=== PATIENT | male | born 2000 | race Caucasian/White ===

== ENCOUNTER 2021-06-11 18:49 | Emergency (ER) | payer SELFPAY ==
[2021-06-11 18:54] VITALS: BP 124/73; PULSE 109; RESP 18; TEMP 36.7; O2SAT 96; BMI 34.7
--- NOTE | 2021-06-11 19:05 | ED_ITS ---
HPI - Extremity Problem General: Chief complaint: Extremity Injury, Lower Stated complaint: blisters on feet Time Seen by Provider: 06/11/21 18:54 History of Present Illness: Patient appears here after a long walk and bike ride from [facility] and complains about blisters to his feet. Patient is wearing cowboy boots. Patient said blisters been there previous to his time coming down here but they have been made worse by his recent travels. He says they are painful. Associated symptoms: Deny fever(s) Review of Systems Const: Denies: fever(s) or chills Resp: Denies: dyspnea Skin/Breast: Reports: other (Complains of blisters to both feet.) Physical Exam Const: COMMON NORMALS: no acute distress Resp: COMMON NORMALS: normal respiratory effort Cardio: RATE: tachycardic Skin: OTHER: Patient has large blisters to the forefoot lateral aspect and to the little toes on both feet. None of them appear infected. Did have a couple underneath each big toe that have broke open. There is no erythema to the areas no drainage there is tenderness with palpation though. Course Vital Signs: Vital signs: Vital Signs Temperature 98.1 F 06/11/21 18:54 Pulse Rate 109 H 06/11/21 18:54 Respiratory Rate 18 06/11/21 18:54 Blood Pressure 124/73 06/11/21 18:54 Pulse Oximetry 96 06/11/21 18:54 MDM - Extremity (Nontraumatic) Medical Decision Making Blisters on the feet most likely from road walking. No signs of infection. Discharge Plan Discharge Patient Disposition: Home Clinical Impression: Blister of foot Condition: Stable Discharge Orders: Discharge ED (Routine); Ordered 06/11/21 Ordered By: Cooper Oviedo Discharge Diet: Usual diet Discharge Activity: Increase activity as tolerated Patient Instructions: Blister (ED) Activity Restrictions/Additional Instructions: Maria feels much possible. Make sure the socks stay dry. Watch for signs and symptoms of infection such as redness, drainage of pus or severe pain coming from blister areas. You can buy moleskin to place on the feet to keep feet from rubbing in the shoes. Coding Level of Care Code ED Assistant Farm Operations Manager for Chg Fwd Exam Expanded Problem Focused
== END 2021-06-11 19:14 | disposition home or self-care (01) ==
PROVIDERS: Emergency Provider Nurse Practitioner Family
DX: S90.822A Blister (nonthermal), left foot, initial encounter (principal); S90.821A Blister (nonthermal), right foot, initial encounter; Y93.55 Activity, bike riding
CPT/HCPCS: 99281

== ENCOUNTER 2021-09-12 02:03 | Emergency (ER) | payer SELFPAY ==
[2021-09-12] VITALS (11 sets, daily range): BP systolic 100–127; BP diastolic 61–81; PULSE 61–100; RESP 16–18; O2SAT 93–100
--- NOTE | 2021-09-12 02:10 | ECG_ITS ---
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 Measurements Intervals [place] Rate: 86 P: 63 GA: 152 QRS: 74 QRSD: 106 T: 21 QT: 398 QTc: 478 Interpretive Statements SINUS RHYTHM Right ventricular conduction delay NONSPECIFIC T-WAVE ABNORMALITY No previous ECG available for comparison Electronically Signed On 09-12-2021 12:26:31 CDT by Rolando Dc M.D. [id number]
[2021-09-12] MEDS: LORazepam 2 mg/mL INJ 1 mL IM (02:32)
[2021-09-12] MEDS: ziprasidone 20 mg/mL SDV IM (02:33)
[2021-09-12 02:50] LABS: Add Urine Microscopic? NO; Charge for UA Resulting for Rev
[2021-09-12 02:55] LABS: Bilirubin Urine Neg (Negative); Blood Urine Neg (Negative); Glucose Urine UA Norm (Normal); Ketones Urine Negative (Negative); Leukocyte Esterase Urine Negative (Negative); Nitrate Urine Negative (Negative); Protein Urine Neg (Negative); Urine Appearance Clear (CLEAR); Urine Color Colorless (Yellow); Urobilinogen Urine Norm (Negative); pH Urine 6 (5-7)
[2021-09-12 03:02] LABS: Amphetamines Screen Urine Negative (Negative); Barbiturates Screen Urine Negative (Negative); Benzodiazepines Screen Urine Negative (Negative); Cocaine Screen Urine Negative (Negative); Opiate Screen Urine Negative (Negative); PCP Screen Urine Negative (Negative); THC Screen Urine Positive (Negative)
[2021-09-12 03:41] LABS: Basophils # 0.1 10^3/uL (0.0-0.1); Basophils % 0.5 %; Eosinophils # 0.2 10^3/uL (0.0-0.8); Eosinophils % 1.8 %; Hematocrit 43.7 % (42.0-52.0); Lymphocytes # 3.6 10^3/uL (0.8-4.8); Lymphocytes % 35.7 %; Mean Corpuscular HGB Conc 34.3 g/dL (30.0-36.0); Mean Corpuscular Hemoglobin 30.2 pg (28.0-34.0); Mean Corpuscular Volume 88.1 fl (80-94); Mean Platelet Volume 12.5 fL (7.4-10.4); Monocytes # 0.7 10^3/uL (0.2-0.9); Monocytes % 6.6 %; Neutrophils # 5.52 10^3/uL (1.8-7.7); Nucleated Red Blood Cells % 0 %; Platelet Count 162 10^3/cmm (130-400); Red Blood Count 4.96 10^6/uL (4.1-5.3); Red Cell Distribution Width 14.4 % (12.1-15.1)
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
[2021-09-12 04:57] LABS: Alanine Aminotransferase 13 U/L (0-41); Albumin Level 4.7 g/dL (3.5-5.2); Alcohol Level 189 mg/dL (0-10); Alkaline Phosphatase 71 IU/L (40-130); Blood Urea Nitrogen 9 mg/dL (6-20); Calcium 9.4 mg/dL (8.5-10.5); Carbon Dioxide 25 mmol/L (22-29); Chloride 108 mmol/L (98-107); Globulin 2.6 g/dL (1.3-4.6); Glucose 113 mg/dL (65-115); Osmolality Calculated 299 mOsm/kg (285-295); Sodium 145 mmol/L (136-145); Total Bilirubin 0.2 mg/dL (0.15-1.2); Total Protein 7.3 g/dL (6.6-8.7)
[2021-09-12 05:00] LABS: Acetaminophen < 5.0 ug/mL (10-30); Salicylate < 0.3 mg/dL (3-10)
[2021-09-12 05:01] LABS: Anion Gap 16.2 (5-19); Aspartate Amino Transferase 23 U/L (0-40); Potassium 4.2 mmol/L (3.5-5.1)
--- NOTE | 2021-09-12 07:05 | PC.NURSE ---
Report received from TREVA Bates at shift change. Pt resting in bed, eyes closed and snoring. Resp even and unlabored. Jana reported that she tried ambulating pt and he was unable to ambulate without assistance and staggering. Care assumed.
== END 2021-09-12 12:48 | disposition home or self-care (01) ==
PROVIDERS: Emergency Provider Emergency Medicine
DX: F10.129 Alcohol abuse with intoxication, unspecified (principal); Y90.6 Blood alcohol level of 120-199 mg/100 ml
CPT/HCPCS: 80053; 80306; 80307; 81003; 85025; 93005; 96372; 99284; J2060; J3486

== ENCOUNTER 2022-02-26 18:49 | Inpatient (IN) | payer MEDICAID, SELFPAY ==
[2022-02-26 19:02] VITALS: BP 124/82; PULSE 82; RESP 17; TEMP 36.7; O2SAT 98
--- NOTE | 2022-02-26 19:33 | ED.C_ITS ---
HPI - Psych General: Chief Complaint: Psychiatric Symptoms Stated Complaint: Suicidal Time Seen by Provider: 02/26/22 19:14 Source: patient Mode of arrival: ambulatory Limitations: no limitations History of Present Illness: 21-year-old male states he been having increasing depression over the last week with suicidal thoughts. He states that he wants to get help and he is concerned he may kill himself. He denies any previous attempts states he was admitted to the psych hale 3 years ago he does not take any meds. Associated symptoms: Reports depression and suicidal ideation Review of Systems Const: Denies: fever(s), chills, body aches or change in appetite Eyes: Denies: blurry vision or eye discomfort ENMT: Denies: throat pain or dental pain Card: Denies: chest pain Resp: Denies: dyspnea GI: Denies: abdominal pain, nausea, vomiting or diarrhea : Denies: dysuria Musc: Denies: neck pain or back pain Skin/Breast: Denies: rash Neuro: Denies: headache(s) Psych: Reports: depression and suicidal ideation Reji/Lymph: Denies: easy bruising All/Imm: Denies: urticaria PFS ED PFSH: Medical History (Updated 02/26/22 @ 19:36 by Wing Smith MD) No pertinent past medical history Social History (Updated 02/26/22 @ 19:34 by Wing Smith MD) Substance/Drug Use: current Substance/Drug use type: Marijuana Physical Exam Const: COMMON NORMALS: no acute distress, patient oriented x3 and healthy appearing HENMT: COMMON NORMALS: normocephalic and atraumatic HEAD & SCALP: normocephalic and atraumatic Eye: COMMON NORMALS: Equal, round and reactive pupils present and EOMs intact bilaterally PUPIL: Yes Equal, round and reactive pupils present Neck/C-Spine: COMMON NORMALS: full ROM and supple Chest: COMMONS NORMALS: normal inspection of the chest and normal palpation of entire chest wall Resp: COMMON NORMALS: normal respiratory effort, No retractions, No use of accessory muscles and clear to auscultation bilaterally AUSCULTATION: clear to auscultation bilaterally Cardio: COMMON NORMALS: regular rate, regular rhythm and No murmurs present (Cardio) RATE: regular rate RHYTHM: regular rhythm GI: COMMON NORMALS: Normal to inspection, nondistended, normoactive bowel sounds present, Soft to palpation, non-tender and no masses PALPATION: Yes Soft to palpation Extremity: COMMON NORMALS: normal to inspection and full ROM Neuro: COMMON NORMALS: patient oriented x3, moves all extremities and no focal motor deficits Psych: COMMON NORMALS: mental status grossly normal and Normal thought process present THOUGHT PROCESS: Normal thought process present THOUGHT CONTENT: Yes Suicidality present Skin: COMMON NORMALS: no rashes or lesions noted and no wounds GENERAL SKIN EXAM: no rashes or lesions noted Course Vital Signs: Vital signs: Vital Signs Temperature 98.1 F 02/26/22 19:02 Pulse Rate 82 02/26/22 19:02 Respiratory Rate 17 02/26/22 19:02 Blood Pressure 124/82 02/26/22 19:02 Pulse Oximetry 98 02/26/22 19:02 Oxygen Delivery Me thod 02/26/22 19:02 [facility] - Psych Medical Decision Making Patient presents for suicidal ideations patient placed on 96-hour hold medically cleared and will admit to the psych unit. Lab Data 02/26/22 19:25 02/26/22 19:25 Discharge Plan Discharge Patient Disposition: Admitted As Inpatient Clinical Impression: Suicidal ideation Coding Level of Care Code ED Quality Coordinator for Dalila Issa
[2022-02-26 19:34] LABS: Basophils # 0.1 10^3/uL (0.0-0.1); Basophils % 0.7 %; Eosinophils # 0.1 10^3/uL (0.0-0.8); Eosinophils % 1.6 %; Hematocrit 46.8 % (42.0-52.0); Hemoglobin 15.5 g/dL (11.7-16.6); Lymphocytes # 2.8 10^3/uL (0.8-4.8); Lymphocytes % 30.7 %; Mean Corpuscular HGB Conc 33.1 g/dL (30.0-36.0); Mean Corpuscular Volume 93.6 fl (80-94); Mean Platelet Volume 9.4 fL (7.4-10.4); Monocytes # 0.5 10^3/uL (0.2-0.9); Neutrophils # 5.43 10^3/uL (1.8-7.7); Neutrophils % 60.7 %; Nucleated Red Blood Cells % 0 %; Platelet Count 298 10^3/cmm (130-400); Red Cell Distribution Width 13.5 % (12.1-15.1)
[2022-02-26 19:58] LABS: Alanine Aminotransferase 25 U/L (0-41); Albumin Level 4.8 g/dL (3.5-5.2); Alkaline Phosphatase 64 U/L (40-130); Anion Gap 14.1 (5-19); Aspartate Amino Transferase 22 U/L (0-40); Blood Urea Nitrogen 16 mg/dL (6-20); Calcium 10.5 mg/dL (8.5-10.5); Carbon Dioxide 30 mmol/L (22-29); Chloride 99 mmol/L (98-107); Globulin 3.4 g/dL (1.3-4.6); Glomerular Filtration Rate 119.8 mL/min (90-130); Glucose 79 mg/dL (65-115); Osmolality Calculated 288 mOsm/kg (285-295); Potassium 4.1 mmol/L (3.5-5.1); Sodium 139 mmol/L (136-145); Total Bilirubin 0.2 mg/dL (0.15-1.2); Total Protein 8.2 g/dL (6.6-8.7)
[2022-02-26 20:05] LABS: Salicylate < 0.3 mg/dL (3-10)
[2022-02-26 20:06] LABS: Acetaminophen < 5.0 ug/mL (10-30); Alcohol Level < 10 mg/dL (0-10)
[2022-02-26 20:11] LABS: Amphetamines Screen Urine Negative (Negative); Barbiturates Screen Urine Negative (Negative); Benzodiazepines Screen Urine Negative (Negative); Cocaine Screen Urine Negative (Negative); Opiate Screen Urine Negative (Negative); PCP Screen Urine Negative (Negative); THC Screen Urine Positive (Negative)
[2022-02-26 21:05] VITALS: BP 135/82; PULSE 80; RESP 18; TEMP 36.7; O2SAT 98
[2022-02-26 21:38] VITALS: BP 135/82; PULSE 80; RESP 18; TEMP 36.7; O2SAT 98
[2022-02-26] MEDS: nicotine 2 mg Gum BUCCAL (22:13)
[2022-02-27] MEDS: trazodone 50 mg Tablet PO (00:05)
[2022-02-27] MEDS: hyDROXYzine 25 mg Capsule 50 MG PO (00:05)
[2022-02-27 06:00] VITALS: RESP 18
[2022-02-27] MEDS: nicotine 2 mg Gum BUCCAL ×3 (08:15→23:21)
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
[2022-02-27 14:00] VITALS: BP 121/71; PULSE 65; RESP 17; TEMP 36.6; O2SAT 97
[2022-02-27] MEDS: nicotine 21 mg Patch 1 PATCH TRANSDERMA (17:32)
[2022-02-27] MEDS: docusate sodium 100 mg Capsule PO (20:39)
[2022-02-27 20:47] VITALS: BP 131/82; PULSE 84; RESP 18; TEMP 36.7; O2SAT 98
[2022-02-28 05:21] VITALS: RESP 18
[2022-02-28] MEDS: nicotine 2 mg Gum BUCCAL ×3 (09:42→21:47)
[2022-02-28] MEDS: nicotine 21 mg Patch 1 PATCH TRANSDERMA (13:10)
[2022-02-28 14:00] VITALS: BP 96/57; PULSE 62; RESP 16; TEMP 36.5; O2SAT 99
[2022-02-28 20:52] VITALS: BP 133/81; PULSE 80; RESP 18; TEMP 36.7; O2SAT 98
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
[2022-03-01 06:00] VITALS: RESP 18
[2022-03-01] MEDS: nicotine 2 mg Gum BUCCAL ×2 (07:46→16:56)
[2022-03-01] MEDS: buPROPion XL (24 HR) 150 mg Tablet PO (12:01)
[2022-03-01 14:00] VITALS: BP 133/81; PULSE 80; RESP 18; TEMP 36.7; O2SAT 98
[2022-03-01 17:16] VITALS: BP 136/85; PULSE 81; RESP 20; TEMP 36.9; O2SAT 97
[2022-03-01] MEDS: nicotine 4 mg lozenge MUCOUS MEM ×2 (17:27→20:21)
[2022-03-01 20:20] VITALS: BP 139/81; PULSE 86; RESP 17; TEMP 37.2; O2SAT 97
[2022-03-01] MEDS: hyDROXYzine 25 mg Capsule 50 MG PO (20:20)
[2022-03-01] MEDS: trazodone 50 mg Tablet PO (20:21)
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
[2022-03-02 06:00] VITALS: RESP 18
[2022-03-02] MEDS: nicotine 4 mg lozenge MUCOUS MEM ×2 (08:26→13:17)
[2022-03-02] MEDS: buPROPion XL (24 HR) 150 mg Tablet PO (08:26)
[2022-03-02] MEDS: nicotine 2 mg Gum BUCCAL ×3 (11:30→18:33)
[2022-03-02 14:00] VITALS: BP 130/82; PULSE 88; RESP 16; TEMP 36.9; O2SAT 97
--- NOTE | 2022-03-02 18:10 | W.PM.NPUPNS ---
Subjective NPU Subjective: Patient's 21-year-old white male with extended history of ADHD and depression admitted with suicidal ideation and increased feelings of hopelessness. Patient had reported some improvement in mood today. He reports that he had some difficulties with falling asleep but reports some improvement in energy. He had reported desire to leave here and received follow-up therapy and medication management. He had reported having less thoughts of hurting himself and stated that he no longer felt like running onto train tracks. He had minimized any substance abuse despite acknowledging his use of methamphetamine in the recent few months. He had reported no desire to receive substance abuse treatment on an outpatient basis. Patient was compliant and cooperative on the milieu. He continued to report a relative lack of trust in others and states that he has been living on his own with few social supports for several years. Mental Status Exam MSE Comments: He is a casually dressed white male who appears younger than his stated age with adequate grooming and intermittent eye contact. There is no evidence of abnormal involuntary motor movements or tics appreciated. Speech was normal in regards to rate and rhythm and prosody. Mood was described as good. Affect was mood congruent and peres in range today. Thought process was linear and logical, and organized. Thought content showed no evidence of suicidal ideation and no homicidal ideation. There was no evidence of delusional thinking. He did not appear to be responding internal stimuli. His attention was variable as he appeared easily distracted. His concentration was poor. His recent and remote memory appeared grossly intact. He was alert and oriented to person place and time. His insight was limited. Judgment was poor. His impulse control was improving but guarded. Vitals/I&O/Wt Last Vital Signs Temp 98.4 F 03/02/22 14:00 Pulse 88 03/02/22 14:00 Resp 16 03/02/22 14:00 BP 130/82 03/02/22 14:00 Pulse Ox 97 03/02/22 14:00 O2 Del Method 03/01/22 17:16 Data NPU 02/26/22 19:25 02/26/22 19:25 A&P Assessment and plan (1) Major depressive disorder: (2) PTSD (post-traumatic stress disorder): (3) Polysubstance abuse: Plan Is a 21-year-old white male with history of depression and polysubstance abuse admitted with reported suicidal ideation with a plan. 1. Continue Wellbutrin 150 mg XL in the morning to target depression and ADHD symptoms. 2. Return individual, group and milieu therapy 3. Continue 15-minute checks for safety 4. Recommend sober living treatment at the highest level of care to which the patient is willing to commit. Involuntary Hold Information 96 Hour Hold: 96 Hour Involuntary Admission: Yes 96 Hour Hold Ending Date: 03/04/22 96 Hour Hold Ending Time: 19:32 Attestations NPU Medical Necessity Statement*: Inpatient hospitalizations is medically necessary and the clinically appropriate intervention at this time. We will monitor medications and make changes as indicated with likely length of stay 3-5 days. Coding Level of Care Code Established Pt Acute Learning Operations Specialist for Deliag Fwashwin Patient Type Established History Problem Focused Exam Problem Focused Medical Decision Making Straight Forward Diagnoses Major depressive disorder F32.9 PTSD (post-traumatic stress disorder) F43.10 Polysubstance abuse F19.10
[2022-03-02] MEDS: hyDROXYzine 25 mg Capsule 50 MG PO (20:15)
[2022-03-02] MEDS: trazodone 50 mg Tablet PO (20:15)
[2022-03-02 20:23] VITALS: BP 127/77; PULSE 89; RESP 17; TEMP 36.8; O2SAT 97
[2022-03-03 06:00] VITALS: RESP 16
[2022-03-03] MEDS: buPROPion XL (24 HR) 150 mg Tablet PO (07:47)
[2022-03-03] MEDS: nicotine 4 mg lozenge MUCOUS MEM ×2 (07:48→19:52)
[2022-03-03] MEDS: nicotine 21 mg Patch 1 PATCH TRANSDERMA (12:24)
[2022-03-03 14:00] VITALS: BP 128/69; PULSE 86; RESP 16; TEMP 36.6; O2SAT 97
--- NOTE | 2022-03-03 18:51 | P.NPUPN_ITS ---
Subjective NPU Subjective: Patient's 21-year-old white male with extended history of ADHD and depression admitted with suicidal ideation and increased feelings of hopelessness. The patient had reported feeling better. He states that he no longer feels suicidal. He states that he has a place to stay and states that h is energy has been better. He reported adequate sleep. He reports that he is willing to receive treatment on an outpatient basis. Patient reported no feelings of hopelessness. He had minimized having any substance abuse issues despite having admitted to the use of some substances outside of the hospital. He had reported a general lack of social supports Mental Status Exam MSE Comments: He is a casually dressed white male who appears younger than his stated age with adequate grooming and intermittent eye contact. There is no evidence of abnormal involuntary motor movements or tics appreciated. Speech was normal in regards to rate and rhythm and prosody. Mood was described as okay. Affect was mood congruent and peres in range today. Thought process was linear and logical, and organized. Thought content showed no evidence of suicidal ideation and no homicidal ideation. There was no evidence of delusional thinking. He did not appear to be responding internal stimuli. His attention was variable as he appeared easily distracted. His concentration was poor. His recent and remote memory appeared grossly intact. He was alert and oriented to person place and time. His insight was limited. Judgment was poor. His impulse control was improving but guarded. Vitals/I&O/Wt Last Vital Signs Temp 98 F 03/03/22 14:00 Pulse 86 03/03/22 14:00 Resp 16 03/03/22 14:00 BP 128/69 03/03/22 14:00 Pulse Ox 97 03/03/22 14:00 O2 Del Method 03/03/22 14:00 Data NPU 02/26/22 19:25 02/26/22 19:25 A&P Assessment and plan (1) Major depressive disorder: (2) PTSD (post-traumatic stress disorder): (3) Polysubstance abuse: Plan Is a 21-year-old white male with history of depression and polysubstance abuse admitted with reported suicidal ideation with a plan. 1. Continue Wellbutrin 150 mg XL in the morning to target depression and ADHD symptoms. 2. Return individual, group and milieu therapy 3. Continue 15-minute checks for safety 4. Recommend sober living treatment at the highest level of care to which the patient is willing to commit. Involuntary Hold Information 96 Hour Hold: 96 Hour Involuntary Admission: Yes 96 Hour Hold Ending Date: 03/04/22 96 Hour Hold Ending Time: 19:32 Attestations NPU Medical Necessity Statement*: Inpatient hospitalizations is medically necessary and the clinically appropriate intervention at this time. We will monitor medications and make changes as indicated with likely length of stay 1-2 days. Coding Level of Care Code Established Pt Acute Extractor Operator Solvent Process for Deliag Luis Manuel Patient Type Established History Problem Focused Exam Problem Focused Medical Decision Making Straight Forward Diagnoses Major depressive disorder F32.9 PTSD (post-traumatic stress disorder) F43.10 Polysubstance abuse F19.10
[2022-03-03 20:21] VITALS: BP 127/83; PULSE 83; RESP 17; TEMP 36.8; O2SAT 99
[2022-03-04] MEDS: trazodone 50 mg Tablet PO (00:59)
[2022-03-04 06:00] VITALS: RESP 18
[2022-03-04] MEDS: buPROPion XL (24 HR) 150 mg Tablet PO (08:06)
[2022-03-04] MEDS: nicotine 4 mg lozenge MUCOUS MEM (08:30)
--- NOTE | 2022-03-04 11:15 | W.PM.NPUPNS ---
Vitals/I&O/Wt Last Vital Signs Temp 98.3 F 03/03/22 20:21 Pulse 83 03/03/22 20:21 Resp 18 03/04/22 06:00 BP 127/83 03/03/22 20:21 Pulse Ox 99 03/03/22 20:21 O2 Del Method 03/03/22 14:00 Data NPU 02/26/22 19:25 02/26/22 19:25 Involuntary Hold Information 96 Hour Hold: 96 Hour Involuntary Admission: Yes 96 Hour Hold Ending Date: 03/04/22 96 Hour Hold Ending Time: 19:32 Attestations NPU Medical Necessity Statement*: During the hospitalization, patient had routine laboratory studies which were within normal limits except for few outliers. Additionally there was a general medical evaluation which was also within normal limits and revealed no new acute processes. Discharge Summary: At the time of discharge, lethality was denied and psychosis was resolving. Mood and anxiety were well managed. Patient endorsed a plan to avoid all drugs of abuse and follow-up with the aftercare recommendations of the treatment team. Patient was evaluated and deemed to be absent credible lethality, and had achieved the maximum benefit from an inpatient hospitalization, so was discharged. Coding Level of Care Code Acute As400 Programmer Analyst for Dalila Issa
[2022-03-04 11:29] VITALS: BP 127/83; PULSE 83; RESP 18; TEMP 36.8; O2SAT 99
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
== END 2022-03-04 12:20 | disposition home or self-care (01) | DRG 881 ==
LOC: ER 19:36 → NP 19:52
PROVIDERS: Admitting Provider Psychiatry & Neurology Psychiatry; Emergency Provider Emergency Medicine; Visit Provider Psychiatry & Neurology Psychiatry
DX: F32.9 Major depressive disorder, single episode, unspecified (principal); R45.851 Suicidal ideations; F43.10 Post-traumatic stress disorder, unspecified; F19.10 Other psychoactive substance abuse, uncomplicated; F17.210 Nicotine dependence, cigarettes, uncomplicated; Z62.810 Personal history of physical and sexual abuse in childhood; Z91.51 Personal history of suicidal behavior; Z91.52 Personal history of nonsuicidal self-harm; F90.9 Attention-deficit hyperactivity disorder, unspecified type
CPT/HCPCS: 80053; 80306; 80307; 85025; 97150; 97165; 99285

== ENCOUNTER 2022-07-21 12:55 | Emergency (ER) | payer MEDICAID, SELFPAY ==
[2022-07-21 14:03] VITALS: BP 116/73; PULSE 67; RESP 16; TEMP 36.4; O2SAT 98
--- NOTE | 2022-07-21 14:17 | XRR_ITS ---
PROCEDURE INFORMATION: Exam: XR Abdomen Exam date and time: 07/21/2022 2:51 PM Age: 21 years old Clinical indication: Constipation; Abdominal pain; Generalized TECHNIQUE: Imaging protocol: Radiologic exam of the abdomen. Views: Frontal supine view of the abdomen. 1 View. COMPARISON: No relevant prior studies available. FINDINGS: Gastrointestinal tract: Normal. No bowel dilation. Bones/joints: Unremarkable. XR/XR KUB [id number] IMPRESSION: No acute findings.
--- NOTE | 2022-07-21 14:18 | W.ED.ABDPA2 ---
HPI - Abdominal Pain General: Chief Complaint: Abdominal Pain Stated Complaint: testicular pain/abd pain Time Seen by Provider: 07/21/22 13:17 History of Present Illness: Patient comes to the ED with multiple complaints. His first complaint is a tick bite on his penis. Patient says he noticed the tick yesterday and removed it. He stated that later in the evening head of his penis started swelling and got red. He was having some pain when urinating. Today he said the swelling at the head of his penis has gotten better and he is able to urinate without any obstruction, but does endorse a little bit of burning pain when he urinates. His other complaint is some abdominal pain and constipation that is been going on now for the past month. He states that he has daily small hard bowel movements that he has to strain a lot. He states that he has not had a large bowel movement in over 2 weeks. Today he was started having some abdominal pain that he said is generalized throughout his abdomen. He rates the pain currently a 6 out of 10. He states that he was nauseous this morning as well and had 2 episodes of emesis. He reports a very small hard bowel movement earlier this morning as well. Patient does endorse having unprotected sex and would like to get STD testing. Associated Symptoms: Reports constipation, nausea and vomiting; Denies chills, diarrhea, dysuria, fever(s), hematochezia and hematuria Review of Systems Const: Denies: fever(s), chills or fatigue Eyes: Denies: change in vision or eye discomfort ENMT: Denies: throat pain, odynophagia, nasal discharge or nasal congestion Card: Denies: chest pain, palpitations, edema, swelling of feet/ankles, dyspnea on exertion or orthopnea Resp: Denies: dyspnea, productive cough or non-productive cough GI: Reports: abdominal pain, nausea, vomiting and constipation; Denies: diarrhea or hematochezia : Denies: flank pain, difficulty urinating, dysuria or hematuria Musc: Denies: neck pain, back pain or extremity swelling Skin/Breast: Reports: new lesions (Tick bite on penis); Denies: rash Neuro: Denies: headache(s), numbness in extremities or weakness in extremities [facility] ED PFSH: Medical History (Updated 07/21/22 @ 15:55 by MARIAM Franklin) No pertinent past medical history Surgical History (Updated 07/22/22 @ 20:29 by MARIAM Franklin) No pertinent past surgical history Social History (Updated 02/26/22 @ 19:34 by Wing Smith MD) Substance/Drug Use: current Physical Exam Const: COMMON NORMALS: no acute distress, patient oriented x3, healthy appearing and alert HENMT: COMMON NORMALS: normocephalic HEAD & SCALP: normocephalic MOUTH: Normal oral and palatal mucosa present THROAT: posterior oropharynx normal and uvula midline Neck/C-Spine: COMMON NORMALS: supple GENERAL: Yes normal visual inspection Resp: COMMON NORMALS: normal respiratory effort, No retractions, No use of accessory muscles and clear to auscultation bilaterally AUSCULTATION: clear to auscultation bilaterally Cardio: COMMON NORMALS: regular rate, regular rhythm, S1 normal heart sound present, S2 normal heart sound present, No gallops present (Cardio), No clicks present (Cardio), No murmurs present (Cardio) and Peripheral pulses 2+ throughout RATE: regular rate RHYTHM: regular rhythm HEART SOUNDS: S1 normal heart sound present and S2 normal heart sound present PERIPHERAL PULSES: Peripheral pulses 2+ throughout GI: COMMON NORMALS: Normal to inspection, nondistended, normoactive bowel sounds present, Soft to palpation, non-tender and no masses PALPATION: Yes Soft to palpation : COMMON NORMALS: Yes no CVA tenderness BLADDER/KIDNEY EXAM: Yes no CVA tenderness MALE GROIN/PERINEUM EXAM: No Genital lesions present PENIS: normal penis, no vesicles, no swelling, No Genital lesions present and other (No erythema, warmth or swelling. No erythema migrans.) Back/Pelvis: COMMON NORMALS: no CVA tenderness Neuro: COMMON NORMALS: patient oriented x3 SENSORIUM/ORIENTATION: Yes alert GAIT: Yes Normal gait present Skin: GENERAL SKIN EXAM: dry skin Course Vital Signs: Vital signs: Vital Signs Temperature 97.5 F L 07/21/22 14:03 Pulse Rate 68 07/21/22 16:14 Respiratory Rate 18 07/21/22 16:14 Blood Pressure 116/73 07/21/22 14:03 Pulse Oximetry 98 07/21/22 16:14 Oxygen Delivery Me thod Room Air 07/21/22 14:03 MDM - Abdominal Pain Medical Decision Making Patient comes to the ED with multiple complaints. His first complaint is a tick bite on his penis. Patient says he noticed the tick yesterday and removed it. He stated that later in the evening head of his penis started swelling and got red. He was having some pain when urinating. Today he said the swelling at the head of his penis has gotten better and he is able to urinate without any obstruction, but does endorse a little bit of burning pain when he urinates. His other complaint is some abdominal pain and constipation that is been going on now for the past month. He states that he has daily small hard bowel movements that he has to strain a lot. He states that he has not had a large bowel movement in over 2 weeks. Today he was started having some abdominal pain that he said is generalized throughout his abdomen. He rates the pain currently a 6 out of 10. He states that he was nauseous this morning as well and had 2 episodes of emesis. He reports a very small hard bowel movement earlier this morning as well. Patient does endorse having unprotected sex and would like to get STD testing. Vitals are stable. Exam patient is benign and he appears nontoxic in no acute distress or pain. Penis appears normal and there is no erythema, warmth or swelling noted. No erythema migrans rash seen where tick bite was. No other lesions noted. Labs are all unremarkable. Gonorrhea and Chlamydia lab pending. UA unremarkable. Patient was given IM Rocephin and azithromycin to prophylactically treat for gonorrhea and chlamydia. He was stable for discharge home and diagnosed with tick bite, abdominal pain and constipation. He was discharged home with prescription for doxycycline and told to take [id number] MiraLAX to help with constipation. Follow-up with his PCP in the next week for reevaluation. Return to ED precautions given. Patient understood and agreed with plan. Lab Data I reviewed the patient's lab results. 07/21/22 14:35 07/21/22 14:35 Labs/Radiology: Radiology Impressions KUB X-Ray 07/21/22 14:17 IMPRESSION: No acute findings. Laboratory Results WBC 8.7 10^3/uL (4.0-10.0) 07/21/22 14:35 RBC 4.47 10^6/uL (4.1-5.3) 07/21/22 14:35 Hgb 13.4 g/dL (11.7-16.6) 07/21/22 14:35 Hct 40.5 % (42.0-52.0) L 07/21/22 14:35 MCV 90.6 fl (80-94) 07/21/22 14:35 MCH 30.0 pg (28.0-34.0) 07/21/22 14:35 MCHC 33.1 g/dL (30.0-36.0) 07/21/22 14:35 RDW 13.8 % (12.1-15.1) 07/21/22 14:35 Plt Count 260 10^3/cmm (130-400) 07/21/22 14:35 MPV 9.5 fL (7.4-10.4) 07/21/22 14:35 Neut % (Auto) 61.0 % 07/21/22 14:35 Lymph % (Auto) 29.3 % 07/21/22 14:35 [place] % (Auto) 5.8 % 07/21/22 14:35 Eos % (Auto) 3.1 % 07/21/22 14:35 Baso % (Auto) 0.5 % 07/21/22 14:35 Neut # (Auto) 5.30 10^3/uL (1.8-7.7) 07/21/22 14:35 Lymph # (Auto) 2.5 10^3/uL (0.8-4.8) 07/21/22 14:35 [place] # (Auto) 0.5 10^3/uL (0.2-0.9) 07/21/22 14:35 Eos # (Auto) 0.3 10^3/uL (0.0-0.8) 07/21/22 14:35 Baso # (Auto) 0.0 10^3/uL (0.0-0.1) 07/21/22 14:35 Nucleated RBC % (auto) 0 % 07/21/22 14:35 Nucleated RBCs # 0.0 /100WBC 07/21/22 14:35 Sodium 141 mmol/L (136-145) 07/21/22 14:35 Potassium 4.2 mmol/L (3.5-5.1) 07/21/22 14:35 Chloride 106 mmol/L (98-107) 07/21/22 14:35 Carbon Dioxide 25 mmol/L (22-29) 07/21/22 14:35 Anion Gap 14.2 (5-19) 07/21/22 14:35 BUN 14 mg/dL (6-20) 07/21/22 14:35 Creatinine 0.8 mg/dL (0.7-1.2) 07/21/22 14:35 GFR Calculation 119.8 mL/min (90-130) 07/21/22 14:35 Glucose 92 mg/dL (65-115) 07/21/22 14:35 Calculated Osmolality 292 mOsm/kg (285-295) 07/21/22 14:35 Calcium 9.3 mg/dL (8.5-10.5) 07/21/22 14:35 Total Bilirubin 0.2 mg/dL (0.15-1.2) 07/21/22 14:35 AST 17 U/L (0-40) 07/21/22 14:35 ALT 16 U/L (0-41) 07/21/22 14:35 Alkaline Phosphatase 53 U/L (40-130) 07/21/22 14:35 C-Reactive Protein 3.0 mg/L (0.0-4.9) 07/21/22 14:35 Total Protein 7.0 g/dL (6.6-8.7) 07/21/22 14:35 Albumin 4.5 g/dL (3.5-5.2) 07/21/22 14:35 Globulin 2.5 g/dL (1.3-4.6) 07/21/22 14:35 Lipase 27 U/L (13-60) 07/21/22 14:35 Urine Color Yellow (Yellow) 07/21/22 14:31 Urine Appearance Clear (CLEAR) 07/21/22 14:31 Urine pH 5 (5-7) 07/21/22 14:31 Ur Specific [place] 1.030 (1.005-1.030) 07/21/22 14:31 Urine Protein Neg (Negative) 07/21/22 14:31 Urine Glucose (UA) Norm (Normal) 07/21/22 14:31 Urine Ketones Negative (Negative) 07/21/22 14:31 Urine Blood Neg (Negative) 07/21/22 14: Urine Nitrate Negative (Negative) 07/21/22 14:31 Urine Bilirubin Neg (Negative) 07/21/22 14:31 Urine Urobilinogen Neg mg/dL (Negative) 07/21/22 14:31 Ur Leukocyte Esterase Negative (Negative) 07/21/22 14:31 Discharge Plan Discharge Patient Disposition: Home Clinical Impression: Tick bite Qualifiers: Encounter type: initial encounter Site of tick bite: male external genital organs Site of tick bite of male external genital organ: penis Qualified Code(s): S30.862A - Insect bite (nonvenomous) of penis, initial encounter Abdominal pain Qualifiers: Abdominal location: generalized Qualified Code(s): R10.84 - Generalized abdominal pain Constipation Qualifiers: Constipation type: unspecified constipation type Qualified Code(s): K59.00 - Constipation, unspecified Condition: Stable Prescriptions: New doxycycline hyclate 100 mg tablet 100 mg PO BID 10 Days Qty: 20 0RF No Action bupropion HCl 150 mg Tablet Extended Release 24 Hr 150 mg PO DAILY 30 Days Qty: 30 1RF trazodone 50 mg Tablet 50 mg PO BEDTIME PRN (Reason: Insomnia) 30 Days Qty: 30 1RF Discharge Orders: Discharge ED (Routine); Ordered 07/21/22 Ordered By: Deandre Wilkins Discharge Diet: Regular Discharge Activity: Increase activity as tolerated Patient Instructions: Constipation (DC), Tick Bite (ED) Activity Restrictions/Additional Instructions: Follow-up with medical provider as directed in the next 5 to 7 days for reevaluation. Tick panel and STD testing are pending and results probably will be back within the next 2 to 3 days. Call [facility] or go to your patient portal to find out lab results. You are given prophylactic treatment for gonorrhea and chlamydia, so if STD tests come back positive you have already received treatment. Buy [id number] MiraLAX and mix 1 capful of powder into 8 ounces of water daily as needed for constipation. Take medications as prescribed. Return to the ER or your medical provider if condition worsens. Please read and understand discharge instructions. Thank you for choosing [facility] for your healthcare needs today. Please realize this is an emergency room and that we are providing you with a medical screening exam and this may not be complete and all inclusive of all the testing and or work up that you may need to determine your ailment or severity of your illness. It is very important that you follow up as instructed or that you return to the Emergency Department should you have concerns or if your condition changes or worsens in any way. Coding Level of Care Code ED [employer]inder[employer] Technician for Dalila Issa
[2022-07-21 14:45] LABS: Add Urine Microscopic? NO; Charge for UA Resulting for Rev
[2022-07-21 14:51] LABS: Basophils % 0.5 %; Eosinophils # 0.3 10^3/uL (0.0-0.8); Eosinophils % 3.1 %; Hematocrit 40.5 % (42.0-52.0); Hemoglobin 13.4 g/dL (11.7-16.6); Lymphocytes # 2.5 10^3/uL (0.8-4.8); Lymphocytes % 29.3 %; Mean Corpuscular HGB Conc 33.1 g/dL (30.0-36.0); Mean Corpuscular Volume 90.6 fl (80-94); Mean Platelet Volume 9.5 fL (7.4-10.4); Monocytes # 0.5 10^3/uL (0.2-0.9); Monocytes % 5.8 %; Nucleated Red Blood Cells % 0 %; Platelet Count 260 10^3/cmm (130-400); Red Blood Count 4.47 10^6/uL (4.1-5.3); Red Cell Distribution Width 13.8 % (12.1-15.1); White Blood Count 8.7 10^3/uL (4.0-10.0)
[2022-07-21 14:55] LABS: Bilirubin Urine Neg (Negative); Blood Urine Neg (Negative); Glucose Urine UA Norm (Normal); Ketones Urine Negative (Negative); Leukocyte Esterase Urine Negative (Negative); Nitrate Urine Negative (Negative); Protein Urine Neg (Negative); Urine Appearance Clear (CLEAR); Urine Color Yellow (Yellow); Urobilinogen Urine Neg (Negative); pH Urine 5 (5-7)
[2022-07-21 15:11] LABS: Alanine Aminotransferase 16 U/L (0-41); Albumin Level 4.5 g/dL (3.5-5.2); Alkaline Phosphatase 53 U/L (40-130); Anion Gap 14.2 (5-19); Aspartate Amino Transferase 17 U/L (0-40); Blood Urea Nitrogen 14 mg/dL (6-20); Calcium 9.3 mg/dL (8.5-10.5); Carbon Dioxide 25 mmol/L (22-29); Chloride 106 mmol/L (98-107); Globulin 2.5 g/dL (1.3-4.6); Glomerular Filtration Rate 119.8 mL/min (90-130); Glucose 92 mg/dL (65-115); Lipase 27 U/L (13-60); Osmolality Calculated 292 mOsm/kg (285-295); Potassium 4.2 mmol/L (3.5-5.1); Sodium 141 mmol/L (136-145); Total Bilirubin 0.2 mg/dL (0.15-1.2)
[2022-07-21] MEDS: azithromycin 250 mg Tablet 1000 MG PO (16:07)
[2022-07-21] MEDS: cefTRIAXone 500 MG in water for injection-sterile 1 ML IM (16:08)
[2022-07-21 16:14] VITALS: PULSE 68; RESP 18; O2SAT 98
--- NOTE | 2022-07-30 07:21 | DCPLANNER ---
TCM called patient due to no primary care physician - no answer at this time.
== END 2022-07-21 16:16 | disposition home or self-care (01) ==
PROVIDERS: Emergency Provider Physician Assistant
DX: S30.862A Insect bite (nonvenomous) of penis, initial encounter (principal); R10.84 Generalized abdominal pain; K59.00 Constipation, unspecified; W57.XXXA Bitten or stung by nonvenomous insect and other nonvenomous arthropods, initial encounter
CPT/HCPCS: 36415; 74018; 80053; 81003; 83690; 85025; 86140; 87491; 87591; 96372; 99284; J0696; Q0144

== ENCOUNTER 2022-08-19 02:12 | Emergency (ER) | payer MEDICAID, SELFPAY ==
[2022-08-19 02:17] VITALS: BP 123/73; PULSE 70; RESP 16; TEMP 36.1; O2SAT 98; BMI 24.2
--- NOTE | 2022-08-19 02:27 | W.ED.PSYCHS ---
HPI - Psych General: Chief Complaint: Psychiatric Symptoms Stated Complaint: SI Time Seen by Provider: 08/19/22 02:19 Source: patient Mode of arrival: ambulatory Limitations: no limitations History of Present Illness: 21-year-old male who is currently homeless he states that he has been out of his meds for months he is not sure he supposed to get him he states he is had depression anxiety some passing suicidal thoughts. He denies any active suicidal plan or ideations currently. Denies any worsening proving factors. Associated symptoms: Reports depression Review of Systems Const: Denies: fever(s) or chills ENMT: Denies: throat pain Card: Denies: chest pain Resp: Denies: dyspnea GI: Denies: abdominal pain, nausea or vomiting Musc: Denies: neck pain or back pain Skin/Breast: Denies: rash Neuro: Denies: headache(s) Psych: Reports: depression [facility] ED PFSH: Medical History No pertinent past medical history Surgical History No pertinent past surgical history Social History Substance/Drug Use: current Physical Exam Const: COMMON NORMALS: no acute distress, patient oriented x3 and healthy appearing HENMT: COMMON NORMALS: normocephalic and atraumatic HEAD & SCALP: normocephalic and atraumatic Neck/C-Spine: COMMON NORMALS: full ROM and supple Chest: COMMONS NORMALS: normal inspection of the chest and normal palpation of entire chest wall Resp: COMMON NORMALS: normal respiratory effort, No retractions, No use of accessory muscles and clear to auscultation bilaterally AUSCULTATION: clear to auscultation bilaterally Cardio: COMMON NORMALS: regular rate, regular rhythm and No murmurs present (Cardio) RATE: regular rate RHYTHM: regular rhythm GI: COMMON NORMALS: Normal to inspection, nondistended, normoactive bowel sounds present, Soft to palpation, non-tender and no masses PALPATION: Yes Soft to palpation Extremity: COMMON NORMALS: normal to inspection and full ROM Neuro: COMMON NORMALS: patient oriented x3, moves all extremities and no focal motor deficits Psych: COMMON NORMALS: mental status grossly normal, Normal thought process present and cooperative MOOD & AFFECT: Yes depressed mood THOUGHT PROCESS: Normal thought process present Skin: COMMON NORMALS: no rashes or lesions noted and no wounds GENERAL SKIN EXAM: no rashes or lesions noted Course Vital Signs: Vital signs: Vital Signs Temperature 97.0 F L 08/19/22 02:17 Pulse Rate 70 08/19/22 02:17 Respiratory Rate 16 08/19/22 02:17 Blood Pressure 123/73 08/19/22 02:17 Pulse Oximetry 98 08/19/22 02:17 Oxygen Delivery Me thod Room Air 08/19/22 02:17 MDM - Psych Medical Decision Making Patient presents here with depression he has no actual suicidal ideation at this time patient is evaluated Dr. Welsh who agrees he is not imminent threat to himself or others and feels he is stable for discharge we will give him information for the crisis center and what time they open he is to go to the crisis center he is return if worsening he understands agrees to plan. Lab Data 08/19/22 02:30 08/19/22 02:30 Laboratory Results WBC 8.0 10^3/uL (4.0-10.0) 08/19/22 02:30 RBC 4.76 10^6/uL (4.1-5.3) 08/19/22 02:30 Hgb 14.4 g/dL (11.7-16.6) 08/19/22 02:30 Hct 42.7 % (42.0-52.0) 08/19/22 02:30 MCV 89.7 fl (80-94) 08/19/22 02:30 MCH 30.3 pg (28.0-34.0) 08/19/22 02:30 MCHC 33.7 g/dL (30.0-36.0) 08/19/22 02:30 RDW 13.1 % (12.1-15.1) 08/19/22 02:30 Plt Count 254 10^3/cmm (130-400) 08/19/22 02:30 MPV 9.3 fL (7.4-10.4) 08/19/22 02:30 Neut % (Auto) 48.5 % 08/19/22 02:30 Lymph % (Auto) 41.8 % 08/19/22 02:30 [place] % (Auto) 5.9 % 08/19/22 02:30 Eos % (Auto) 3.0 % 08/19/22 02:30 Baso % (Auto) 0.5 % 08/19/22 02:30 Neut # (Auto) 3.89 10^3/uL (1.8-7.7) 08/19/22 02:30 Lymph # (Auto) 3.3 10^3/uL (0.8-4.8) 08/19/22 02:30 [place] # (Auto) 0.5 10^3/uL (0.2-0.9) 08/19/22 02:30 Eos # (Auto) 0.2 10^3/uL (0.0-0.8) 08/19/22 02:30 Baso # (Auto) 0.0 10^3/uL (0.0-0.1) 08/19/22 02:30 Nucleated RBC % (auto) 0 % 08/19/22 02:30 Nucleated RBCs # 0.0 /100WBC 08/19/22 02:30 Sodium 140 mmol/L (136-145) 08/19/22 02:30 Potassium 4.3 mmol/L (3.5-5.1) 08/19/22 02:30 Chloride 103 mmol/L (98-107) 08/19/22 02:30 Carbon Dioxide 25 mmol/L (22-29) 08/19/22 02:30 Anion Gap 16.3 (5-19) 08/19/22 02:30 BUN 13 mg/dL (6-20) 08/19/22 02:30 Creatinine 0.9 mg/dL (0.7-1.2) 08/19/22 02:30 GFR Calculation 104.6 mL/min (90-130) 08/19/22 02:30 Glucose 105 mg/dL (65-115) 08/19/22 02:30 Calculated Osmolality 290 mOsm/kg (285-295) 08/19/22 02:30 Calcium 9.8 mg/dL (8.5-10.5) 08/19/22 02:30 Total Bilirubin 0.5 mg/dL (0.15-1.2) 08/19/22 02:30 AST 16 U/L (0-40) 08/19/22 02:30 ALT 12 U/L (0-41) 08/19/22 02:30 Alkaline Phosphatase 54 U/L (40-130) 08/19/22 02:30 Total Protein 7.4 g/dL (6.6-8.7) 08/19/22 02:30 Albumin 4.8 g/dL (3.5-5.2) 08/19/22 02:30 Globulin 2.6 g/dL (1.3-4.6) 08/19/22 02:30 Salicylates 1.0 mg/dL (3-10) L 08/19/22 02:30 Urine Opiates Screen Negative ng/mL (Negative) 08/19/22 02:30 Acetaminophen < 5.0 ug/mL (10-30) L 08/19/22 02:30 Ur Barbiturates Screen Negative ng/mL (Negative) 08/19/22 02:30 Ur Phencyclidine Scrn Negative ng/mL (Negative) 08/19/22 02:30 Ur Amphetamines Screen Negative ng/mL (Negative) 08/19/22 02:30 U Benzodiazepines Scrn Negative ng/mL (Negative) 08/19/22 02:30 Urine Cocaine Screen Negative ng/mL (Negative) 08/19/22 02:30 U Marijuana (THC) Screen Positive ng/mL (Negative) H 08/19/22 02:30 Ethyl Alcohol 10 mg/dL (0-10) 08/19/22 02:30 Discharge Plan Discharge Patient Disposition: Home Clinical Impression: Depression Condition: Stable Prescriptions: No Action bupropion HCl 150 mg Tablet Extended Release 24 Hr 150 mg PO DAILY 30 Days Qty: 30 1RF trazodone 50 mg Tablet 50 mg PO BEDTIME PRN (Reason: Insomnia) 30 Days Qty: 30 1RF Discharge Orders: Discharge ED (Routine); Ordered 08/19/22 Ordered By: Wing Smith Discharge Diet: Advance as tolerated Discharge Activity: Resume usual activity Patient Instructions: Depression (ED) Coding Level of Care Code ED Rehabilitation Construction Specialist for Dalila Issa
[2022-08-19 02:37] LABS: Basophils % 0.5 %; Eosinophils # 0.2 10^3/uL (0.0-0.8); Hematocrit 42.7 % (42.0-52.0); Hemoglobin 14.4 g/dL (11.7-16.6); Lymphocytes # 3.3 10^3/uL (0.8-4.8); Lymphocytes % 41.8 %; Mean Corpuscular HGB Conc 33.7 g/dL (30.0-36.0); Mean Corpuscular Hemoglobin 30.3 pg (28.0-34.0); Mean Corpuscular Volume 89.7 fl (80-94); Mean Platelet Volume 9.3 fL (7.4-10.4); Monocytes # 0.5 10^3/uL (0.2-0.9); Monocytes % 5.9 %; Neutrophils # 3.89 10^3/uL (1.8-7.7); Neutrophils % 48.5 %; Nucleated Red Blood Cells % 0 %; Platelet Count 254 10^3/cmm (130-400); Red Blood Count 4.76 10^6/uL (4.1-5.3); Red Cell Distribution Width 13.1 % (12.1-15.1)
[2022-08-19 03:01] LABS: Alanine Aminotransferase 12 U/L (0-41); Albumin Level 4.8 g/dL (3.5-5.2); Alkaline Phosphatase 54 U/L (40-130); Anion Gap 16.3 (5-19); Aspartate Amino Transferase 16 U/L (0-40); Blood Urea Nitrogen 13 mg/dL (6-20); Calcium 9.8 mg/dL (8.5-10.5); Carbon Dioxide 25 mmol/L (22-29); Chloride 103 mmol/L (98-107); Globulin 2.6 g/dL (1.3-4.6); Glomerular Filtration Rate 104.6 mL/min (90-130); Glucose 105 mg/dL (65-115); Osmolality Calculated 290 mOsm/kg (285-295); Potassium 4.3 mmol/L (3.5-5.1); Sodium 140 mmol/L (136-145); Total Bilirubin 0.5 mg/dL (0.15-1.2); Total Protein 7.4 g/dL (6.6-8.7)
[2022-08-19 03:06] LABS: Amphetamines Screen Urine Negative (Negative); Barbiturates Screen Urine Negative (Negative); Benzodiazepines Screen Urine Negative (Negative); Cocaine Screen Urine Negative (Negative); Opiate Screen Urine Negative (Negative); PCP Screen Urine Negative (Negative); THC Screen Urine Positive (Negative)
[2022-08-19 03:20] LABS: Acetaminophen < 5.0 ug/mL (10-30); Alcohol Level 10 mg/dL (0-10)
[2022-08-19 03:35] VITALS: BP 107/69; PULSE 80; RESP 14
--- NOTE | 2022-08-26 14:14 | DCPLANNER ---
manager process called patient due to no primary care physician - no answer at this time.
== END 2022-08-19 03:37 | disposition home or self-care (01) ==
PROVIDERS: Emergency Provider Emergency Medicine
DX: F32.A Depression, unspecified (principal)
CPT/HCPCS: 80053; 80306; 80307; 85025; 99283; Q3014

== ENCOUNTER 2022-12-02 08:45 | Emergency (ER) | payer MEDICAID, SELFPAY ==
--- NOTE | 2022-12-02 08:46 | W.ED.CHESTPA ---
HPI - Chest Pain General: Chief Complaint: Chest Pain Stated Complaint: chest pain Time Seen by Provider: 12/02/22 08:46 Source: patient Mode of arrival: ambulatory Limitations: no limitations History of Present Illness: Patient is a very polite 22-year-old male who presents to ED today with a complaint of chest pain. Patient states he was walking to work when he began developing chest pain. He states when he got to work his coworkers noticed that he looked pale and encouraged him to seek medical evaluation. Patient states he has had similar chest pains many times over the past several months. He states he will have several episodes a month. They do not seem to be brought on by exertion as he often will have symptoms at rest. He does not complain of shortness of breath. He states recently he has had a very mild nonproductive cough. He has not noticed any calf pain or lower extremity swelling. He has no known cardiac or pulmonary history. No known family history of cardiac disease. Patient has not been running fevers. He states he has had no work-up for his chest discomforts. Does not have a primary care provider. 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 MD complaint: chest pain Onset (ago): hour(s) Timing of current episode: weekly Prior episodes: Yes Onset: during rest and during exertion Pain location: left chest Pain radiation: none Relieving factors: nothing Exacerbating factors: nothing Associated symptoms: Deny abdominal pain, dyspnea, fever(s), nausea, palpitations, syncope or vomiting Treatment prior to arrival: none Risk Factors: Coronary artery disease risk factors: none Thoracic aortic dissection risk factors: none Review of Systems Const: Denies: fever(s), chills, body aches, fatigue or malaise Eyes: Denies: change in vision or blurry vision ENMT: Denies: throat pain, odynophagia, nasal discharge, nasal congestion or sinus pain Card: Reports: chest pain; Denies: palpitations, irregular heart rhythm, edema, swelling of feet/ankles, lightheadedness, syncope, pre-syncope, dyspnea on exertion, orthopnea, leg pain with exertion or acrocyanosis Resp: Reports: non-productive cough and pain on inspiration; Denies: dyspnea, productive cough, wheezing, stridor, change in phlegm color, hemoptysis or chest congestion GI: Denies: abdominal pain, nausea, vomiting, hematemesis or heartburn : Denies: flank pain, difficulty urinating, dysuria, urinary frequency or hematuria Musc: Denies: neck pain, back pain, extremity pain, extremity swelling or joint pain Skin/Breast: Denies: rash Neuro: Denies: headache(s), numbness in extremities, weakness in extremities, sensory changes or dizziness PFSH ED PFSH: Medical History No pertinent past medical history Surgical History No pertinent past surgical history Social History Substance/Drug Use: current Physical Exam Const: COMMON NORMALS: no acute distress, average body habitus, patient oriented x3, no limitations, healthy appearing, alert and well nourished GENERAL APPEARANCE: cooperative ORIENTATION/CONSCIOUSNESS: Yes awake, Yes oriented to person, Yes oriented to place and Yes oriented to time HENMT: COMMON NORMALS: normocephalic and atraumatic HEAD & SCALP: normal to inspection, normocephalic and atraumatic Eye: GENERAL EYE: appearance normal, both eyes and all related structures Neck/C-Spine: COMMON NORMALS: full ROM, no lymphadenopathy, supple, no meningeal signs and no JVD Chest: COMMONS NORMALS: normal inspection of the chest OTHER: discomfort with palpation of the left side of his chest Resp: COMMON NORMALS: normal respiratory effort and clear to auscultation bilaterally AUSCULTATION: clear to auscultation bilaterally Cardio: COMMON NORMALS: no JVD, regular rate and regular rhythm RATE: regular rate RHYTHM: regular rhythm GI: COMMON NORMALS: Normal to inspection, nondistended, normoactive bowel sounds present, Soft to palpation, non-tender, No hepatosplenomegaly present and no masses PALPATION: Yes Soft to palpation and Yes No hepatosplenomegaly present : COMMON NORMALS: Yes no CVA tenderness BLADDER/KIDNEY EXAM: Yes no CVA tenderness Back/Pelvis: COMMON NORMALS: no CVA tenderness and thoracic and lumbar spine normal to inspection Extremity: COMMON NORMALS: normal to inspection, full ROM, capillary refill normal, no joint enlargement, no clubbing, cyanosis or edema, no calf tenderness and no pedal edema GENERAL: Yes normal exam except as noted Neuro: REFUGIO COMA SCALE: document GCS findings Refugio coma scale eye opening: Spontaneous [place] coma scale verbal response: Orientated [place] coma scale motor response: Obey commands Refugio coma scale total score: 15 COMMON NORMALS: patient oriented x3, moves all extremities, no focal motor deficits, no sensory deficits noted and gait normal SENSORIUM/ORIENTATION: Yes alert, Yes oriented to person, Yes oriented to place and Yes oriented to time MENINGEAL SIGNS: Yes no meningeal signs Skin: COMMON NORMALS: no rashes or lesions noted GENERAL SKIN EXAM: no rashes or lesions noted Course Vital Signs: Vital signs: Vital Signs Temperature 98.2 F 12/02/22 08:51 Pulse Rate 90 12/02/22 08:51 Respiratory Rate 16 12/02/22 08:51 Blood Pressure 127/85 12/02/22 08:51 Pulse Oximetry 95 12/02/22 08:51 Oxygen Delivery Me thod Room Air 12/02/22 08:51 MDM - Chest Pain Medical Decision Making Patient is a 22-year-old male who arrived to ED today with complaint of chest pain. Patient states he has had many episodes of chest pains over the past several months. He arrives in no acute distress. His vital signs are stable. Blood work including troponin is negative. His EKG is nonischemic. CXR is normal. At this time patient will be discharged from the ED and case management referral placed for primary care follow-up. Return to ED precautions given. Lab Data 12/02/22 08:54 12/02/22 08:54 Laboratory Results WBC 6.40 10^3/uL (3.29-11.43) 12/02/22 08:54 RBC 4.76 10^6/uL (3.85-5.65) 12/02/22 08:54 Hgb 14.50 g/dL (11.27-16.99) 12/02/22 08:54 Hct 43.2 % (37-53) 12/02/22 08:54 MCV 90.8 fl (82-101) 12/02/22 08:54 MCH 30.5 pg (27-33) 12/02/22 08:54 MCHC 33.6 g/dL (30-55) 12/02/22 08:54 RDW 13.3 % (12.1-15.1) 12/02/22 08:54 Plt Count 276 10^3/cmm (157-399) 12/02/22 08:54 MPV 9.3 fL (7.4-10.4) 12/02/22 08:54 Neut % (Auto) 54.6 % 12/02/22 08:54 Lymph % (Auto) 36.3 % 12/02/22 08:54 [place] % (Auto) 6.1 % 12/02/22 08:54 Eos % (Auto) 2.3 % 12/02/22 08:54 Baso % (Auto) 0.5 % 12/02/22 08:54 Neut # (Auto) 3.50 10^3/uL (1.8-7.7) 12/02/22 08:54 Lymph # (Auto) 2.3 10^3/uL (0.8-4.8) 12/02/22 08:54 [place] # (Auto) 0.4 10^3/uL (0.2-0.9) 12/02/22 08:54 Eos # (Auto) 0.2 10^3/uL (0.0-0.8) 12/02/22 08:54 Baso # (Auto) 0.0 10^3/uL (0.0-0.1) 12/02/22 08:54 Nucleated RBC % (auto) 0 % 12/02/22 08:54 Nucleated RBCs # 0.0 /100WBC 12/02/22 08:54 Sodium 140 mmol/L (136-145) 12/02/22 08:54 Potassium 3.9 mmol/L (3.5-5.1) 12/02/22 08:54 Chloride 104 mmol/L (98-107) 12/02/22 08:54 Carbon Dioxide 23 mmol/L (22-29) 12/02/22 08:54 Anion Gap 16.9 (5-19) 12/02/22 08:54 BUN 14 mg/dL (6-20) 12/02/22 08:54 Creatinine 0.8 mg/dL (0.7-1.2) 12/02/22 08:54 GFR Calculation 118.8 mL/min (90-130) 12/02/22 08:54 Glucose 97 mg/dL (65-115) 12/02/22 08:54 Calculated Osmolality 290 mOsm/kg (285-295) 12/02/22 08:54 Calcium 9.4 mg/dL (8.5-10.5) 12/02/22 08:54 Total Bilirubin 0.6 mg/dL (0.15-1.2) 12/02/22 08:54 AST 16 U/L (0-40) 12/02/22 08:54 ALT 19 U/L (0-41) 12/02/22 08:54 Alkaline Phosphatase 61 U/L (40-130) 12/02/22 08:54 Troponin T Baseline < 6 ng/L (0-15) 12/02/22 08:54 Total Protein 7.6 g/dL (6.6-8.7) 12/02/22 08:54 Albumin 4.8 g/dL (3.5-5.2) 12/02/22 08:54 Globulin 2.8 g/dL (1.3-4.6) 12/02/22 08:54 XR interpretation done by ED provider, pending radiology final review Discharge Plan Discharge Patient Disposition: Home Clinical Impression: Atypical chest pain Condition: Stable Prescriptions: No Action No Known Home Medications Discharge Orders: Discharge ED (Routine); Ordered 12/02/22 Ordered By: Janay Jaquez Stand Alone Forms: Work/School Release Coding Level of Care Code ED Supervisor Delivery Department for Dalila Issa
[2022-12-02 08:51] VITALS: BP 127/85; PULSE 90; RESP 16; TEMP 36.8; O2SAT 95; BMI 24.2
--- NOTE | 2022-12-02 08:51 | ECG_ITS ---
[facility] Test Date: 2022-12-02 Pat Name: Jonatahn Paulino Department: Room: Gender: Male [employer]: : 2000 Requested By: Janay Jaquez Order Number: [id number] Marybeth MD: Timo Mulligan M.D. Measurements Intervals [place] Rate: 87 P: 69 [place]: 144 QRS: 71 QRSD: 102 T: 46 QT: 343 QTc: 414 Interpretive Statements SINUS RHYTHM POSSIBLE RIGHT VENTRICULAR CONDUCTION DELAY [RSR (QR) IN V1/V2] Compared to ECG 09/12/2021 02:55:04 T-wave abnormality no longer present Electronically Signed On 12-02-2022 12:15:23 CDT by Timo Mulligan M.D. [id number]
--- NOTE | 2022-12-02 08:56 | XRR_ITS ---
PROCEDURE INFORMATION: Exam: XR Chest Exam date and time: 12/02/2022 9:11 AM Age: 22 years old Clinical indication: Pain; Angina pectoris; Additional info: Chest pain TECHNIQUE: Imaging protocol: Radiologic exam of the chest. Views: 1 view. COMPARISON: CR XR KUB [id number] 07/21/2022 2:51 PM FINDINGS: Lungs: Unremarkable. No consolidation. Pleural spaces: Unremarkable. No pleural effusion. No pneumothorax. Heart/Mediastinum: Cardiac silhouette appears borderline enlarged on this portable chest. Bones/joints: Unremarkable. XR/XR chest 1V portable [id number] IMPRESSION: Borderline cardiomegaly otherwise negative chest.
[2022-12-02 09:04] LABS: Basophils % 0.5 %; Eosinophils # 0.2 10^3/uL (0.0-0.8); Eosinophils % 2.3 %; Hematocrit 43.2 % (37-53); Lymphocytes # 2.3 10^3/uL (0.8-4.8); Lymphocytes % 36.3 %; Mean Corpuscular HGB Conc 33.6 g/dL (30-55); Mean Corpuscular Hemoglobin 30.5 pg (27-33); Mean Corpuscular Volume 90.8 fl (82-101); Mean Platelet Volume 9.3 fL (7.4-10.4); Monocytes # 0.4 10^3/uL (0.2-0.9); Monocytes % 6.1 %; Neutrophils % 54.6 %; Nucleated Red Blood Cells % 0 %; Platelet Count 276 10^3/cmm (157-399); Red Blood Count 4.76 10^6/uL (3.85-5.65); Red Cell Distribution Width 13.3 % (12.1-15.1)
[2022-12-02 09:28] LABS: Alanine Aminotransferase 19 U/L (0-41); Albumin Level 4.8 g/dL (3.5-5.2); Alkaline Phosphatase 61 U/L (40-130); Anion Gap 16.9 (5-19); Aspartate Amino Transferase 16 U/L (0-40); Blood Urea Nitrogen 14 mg/dL (6-20); Calcium 9.4 mg/dL (8.5-10.5); Carbon Dioxide 23 mmol/L (22-29); Chloride 104 mmol/L (98-107); Globulin 2.8 g/dL (1.3-4.6); Glomerular Filtration Rate 118.8 mL/min (90-130); Glucose 97 mg/dL (65-115); Osmolality Calculated 290 mOsm/kg (285-295); Potassium 3.9 mmol/L (3.5-5.1); Sodium 140 mmol/L (136-145); Total Bilirubin 0.6 mg/dL (0.15-1.2); Total Protein 7.6 g/dL (6.6-8.7)
[2022-12-02 09:29] LABS: Troponin(5th) Baseline < 6 ng/L (0-15)
[2022-12-02] MEDS: ketorolac 30 mg/mL INJ IVP (09:48)
--- NOTE | 2022-12-02 10:16 | PC.SOCIAL ---
PCP Appt Appt message sent to Family Medicine. Clinic to contact patient with appt date/time.
== END 2022-12-02 09:57 | disposition home or self-care (01) ==
PROVIDERS: Emergency Provider Physician Assistant
DX: R07.89 Other chest pain (principal)
CPT/HCPCS: 71045; 80053; 84484; 85025; 93005; 96374; 99285; J1885